=== PATIENT | female | born 1935 | race Caucasian/White ===

== ENCOUNTER 2019-06-18 13:35 | Emergency (ER) | payer OTHER ==
[~2019-06-18] VITALS: Ht 167.6 cm; Wt 83.5 kg
[~2019-06-18 13:35] MED LIST: ACETAMINOPHEN325 M1 PO; ACIDOPHILUS1 EAC3 PO; ADULT LOW DOSE81 MG PO; ALEVE220 M1 PO; AMARYL1 MG; AMARYL1 MG PO; AMARYL2 MG PO; ANASTROZOLE1 MG; BAYER CHEWABLE81 MG PO; CARDIZEM CD120 MG PO; COLACE100 MG PO; COMPAZINE10 M1 PO; COUMADIN 2 MG TA2 M1 PO; COUMADIN 3 MG TA3 M1 PO; COZAAR 50 MG TA50 M1 PO; ELIQUIS5 MG; EUCERIN CREME57 GM; FERRO-TIME325 MG PO; FERROUS SULFAT134 M1 PO; GABAPENTIN100 MG PO; GELUSIL TABLET1 EACH PO; GLUCOPHAGE500 MG PO; HYDROCODONE-AP1 EAC6 PO; KEFLEX250 M1 PO; KEFLEX500 MG; LEVAQUIN 750 M750 MG; LEVEMIR FL100 UNIT/1 SUBQ; LEVEMIR SUBQ; LEVOTHROID75 MCG PO; LEVOTHYROXIN0.025 MG PO; LEVOTHYROXINE75 MCG PO; LIDODERM 5%1 PATC1 TRANSDERM; LISINOPRIL10 MG PO; MECLIZINE HCL12.5 MG PO; MIRALAX17 GM PO; NEURONTIN 300300 M1 PO; NORCO 10-325 T1 EACH PO; NORCO 5-325 TA1 EACH PO; NORFLEX100 MG PO; NOVOLOG100 UNIT/1; NOVOLOG100 UNIT/1 SUBQ; PERCOCET 10-321 EAC1; PLAVIX 75 MG TA75 M1 PO; PLAVIX 75 MG TA75 MG PO; PROPAFENONE 15150 MG PO; PROTONIX40 M2 PO; SAVAYSA60 MG PO; SIMVASTATIN40 MG PO; SYNTHROID75 MCG PO; TYLENOL W/CODEI1 TA2 PO; VITAMIN D1000 UNI1 PO; VITAMIN D2000 UNIT PO; ZOFRAN ODT4 MG PO
[2019-06-18] MEDS ORDERED: DILTIAZEM HCL120 M1 PO (13:38)
[2019-06-18] MEDS ORDERED: COZAAR 25 MG TA25 M1 PO (13:38)
[2019-06-18] MEDS ORDERED: LEVOTHYROXINE88 MCG PO (13:38)
[2019-06-18] MEDS ORDERED: PROPAFENONE 22225 M1 PO (13:39)
[2019-06-18] MEDS ORDERED: NORCO 5-325 TA1 EAC1 PO (15:07)
[2019-06-18 15:35] VITALS: BP 174/82
== END 2019-06-18 16:15 | disposition home or self-care (01) ==
LOC: ER 13:35
DX: S80.01XA Contusion of right knee, initial encounter (principal); M25.512 Pain in left shoulder; M25.511 Pain in right shoulder; E11.9 Type 2 diabetes mellitus without complications; E03.9 Hypothyroidism, unspecified; E78.00 Pure hypercholesterolemia, unspecified; K21.9 Gastro-esophageal reflux disease without esophagitis; Z90.49 Acquired absence of other specified parts of digestive tract; Z90.710 Acquired absence of both cervix and uterus; Z85.42 Personal history of malignant neoplasm of other parts of uterus; Z86.73 Personal history of transient ischemic attack (TIA), and cerebral infarction without residual deficits; Z95.5 Presence of coronary angioplasty implant and graft; Z86.2 Personal history of diseases of the blood and blood-forming organs and certain disorders involving the immune mechanism; Z79.4 Long term (current) use of insulin; W18.39XA Other fall on same level, initial encounter; Y93.89 Activity, other specified; Y92.098 Other place in other non-institutional residence as the place of occurrence of the external cause; Y99.8 Other external cause status

== ENCOUNTER 2021-09-02 17:06 | Emergency (ER) | payer OTHER ==
[~2021-09-02] VITALS: Ht 157.5 cm; Wt 68.0 kg
--- NOTE | ~2021-09-02 | EMS ---
[address] [address] EMS Patient Care Report Name: VINI VAZQUEZ Room #: REG JESUS Polo#: [id number] Admission: 09/02/21 Attend Phys: Discharge: Date of : 39 Report #: [id number] THIS REPORT FOR: //name// Report Transmitted: 09/02/2021 17:51 EMS Care Summary [facility] MED-ACT Incident [id number] @ 09/02/2021 16:22 Incident Location [address] [place] [address] Patient VINI VAZQUEZ Female, 85 Years 1935 Patient Address [address] [place] [address] Patient History Hypertension (HTN),Hyperlipidemia,Atrial Fibrillation,Hypothyroidism, Patient Allergies No known allergies, Patient Medications Levothyroxine, Torsemide, Eliquis, Diltiazem, Rosuvastatin, Chief Complaint Altered mental status Disposition Transported No Lights/[place] Dispatch Reason Falls Transported To [facility] Narrative C - Altered mental status, fall, injury, and hearing impairment. H - [id number] was dispatched to a local residences on a C2 fall. [id number] arrived on scene to find Ms. Vazquez an 85 y/o female found sitting in a chair located [address] [address] EMS Patient Care Report Name: VINI VAZQUEZ Room #: REG [facility]#: [id number] Admission: 09/02/21 Attend Phys: Discharge: Date of : 39 Report #: [id number] located in a small living room. Ms. Vazquez was found CAOx4 and able to initially talk in full and complete sentences, but then during our conversation the patient was either unable to or confused to the questions of our crew. No facial droop, slur, or unilateral weakness was noted upon our initial assessment and the patient was able to move all extremities without difficulties during our interaction. 911 had been initiated to the scene by a third alliance party caller who reported that she was on the phone with the patient and was not sounding right during their conversation. Ms. Vazquez's initial and only consistent subjective complaint was that she was having trouble hearing. During further questioning and interaction Ms. Vazquez reported that she maybe having some dysphasia and ''word salad'', but there was a continued seemingly confusion to some questions that our crew was asking the patient. Ms. Vazquez also was able to report upon our arrival to the ED that she was experiencing a headache, but then she added that she was now feeling better and ready to return home. Located on scene was the patient's and son, but both were extremely poor historians. The patient's reported that he was 88 years old and couldn't remember and of the patient's PMH and simply reported that the patient was seemingly ''a little off.'' The patient son was also located on scene and he provided a slightly better HPI involving the patient. He reported that his mom was walking to the kitchen this evening and he had is back turned and heard her fall. He turned around and found the patient lying in prone position. He denied any loss of consciousness during the event and reported that he helped his mother up from the ground. Ms. Vazquez initially reported some knee pain due to the fall, but then never reported anything further from the fall. The son was asked if his mother was acting to baseline for cognition, mobility, and speech. He reported that her speech as been off since yesterday at approx. 1200. He reported that he told his father that something didn't seem right with his mother's speech but no further evaluation or thought was noted by the son. The son then reported that he did not know a whole lot else about his mother, and he had no further information to give our crew. Our crew's best guess based on the information that we could obtain on scene and through questioning that her last known normal was prior to 1200 the previous day. R - Initial assessment, physical examination, V/s ([facility], [place], and 12 lead all done prior to our arrival.), pt. was able to walk from the small cramp room to the front landing where the stretcher was located, IV access, stroke assessment, continued reassessment. T - Ms. Vazquez continued to have an altered mental status during transport. Our crew was able to have full and complete conversations with the patient, and then the next conversation was confused or potentially aphasic or dysphasic speech. No change was noted in the patient's V/s during transport. The patient was moved over into bed in ED room 11 via sheet drag without incident with report given to ED RN and MD. [facility] [address] [place] [address] EMS Patient Care Report Name: VINI VAZQUEZ Room #: [facility] [employer]#: [id number] Admission: 09/02/21 Attend Phys: Discharge: Date of : 39 Report #: [id number] Initial Vitals @17:03P: 74,BP: 176/95,SpO2: 97, @PTAP: 67,R: 15,BP: 163/76,Pain: 0/10,GCS: 15,Glucose: 118,SpO2: 98,Revised Trauma: 12,IA Suspected: false @16:47P: 76,R: 18,BP: 190/96,GCS: 15,Temp: 98.1F,SpO2: 98,Revised Trauma: 12, Impression Altered Mental Status Procedures @17:01 Surgical Mask on Patient Response: Unchanged @16:51 IV Therapy - Saline Lock 10cc (20 ga) Site: Forearm-Right Response: UnchangedSucceeded @[id number] ECG Response: UnchangedSucceeded Timeline SWITCHBOARD CLERK,12-Lead ECG,Response: UnchangedSucceeded, SWITCHBOARD CLERK,BP: 163/76 M,PULSE: 67,RR: 15 R,SPO2: 98 Ox,ETCO2: ,B,PAIN: 0,GCS: 15, 16:19,Call Received 16:19,Psap Call 16:22,Dispatched 16:23,En Route 16:38,On Scene 16:40,At Patient 16:47,BP: 190/96 M,PULSE: 76,RR: 18 R,SPO2: 98 Ox,ETCO2: ,BG: ,PAIN: ,GCS: 15, 16:51,IV Therapy - Saline Lock 10cc 20 ga Site: Forearm-Right,Response: UnchangedSucceeded, 16:54,Depart Scene 17:01,Surgical Mask on Patient,Response: Unchanged 17:03,At Destination 17:03,BP: 176/95 M,PULSE: 74,RR: R,SPO2: 97 Ox,ETCO2: ,BG: ,PAIN: ,GCS: , 17:35,Call Closed Disclaimer v1.1 Copyright 2020 [employer] This EMS Care Summary contains data elements from the applicable legal record (which may be displayed differently). It is designed to provide pertinent information for the following purposes: continuity of care, clinical quality, and state data reporting. The complete legal record is available to ED staff and administrators of the receiving hospital in [place]'s Patient Tracker. All data is provided "as is."
[~2021-09-02 17:06] MED LIST changes: +COZAAR 25 MG TA25 M1 PO; +DILTIAZEM HCL120 M1 PO; +LEVOTHYROXINE88 MCG PO; +NORCO 5-325 TA1 EAC1 PO; +PROPAFENONE 22225 M1 PO
[2021-09-02 18:02] LABS: BASOPHILS 0.6 % (0.0-2.0); EOSINOPHILS 3.2 % (0.0-3.0); HEMATOCRIT 35.1 % (37.0-47.0); HEMOGLOBIN 11.3 gm/dL (12.0-15.0); LYMPHOCYTES 17.2 % (24.0-44.0); MCH 26.9 pg (26.0-34.0); MCHC 32.2 g/dL (28.0-37.0); MCV 83.4 fL (80.0-100.0); MONOCYTES 8.6 % (1.0-8.0); PLATELET COUNT 181 thou/uL (150-400); POLYS 70.4 % (36.0-66.0); RBC 4.21 mil/uL (4.20-5.00); RDW 15.3 % (10.5-14.5); WBC 5.8 thou/uL (4.0-11.0)
[2021-09-02 18:19] LABS: CALCIUM 9.8 mg/dL (8.5-10.1); CREATININE 1.9 mg/dL (0.6-1.0); POTASSIUM 4.2 mmol/L (3.5-5.1)
[2021-09-02 18:20] LABS: APTT 26.7 Seconds (24.5-32.8); INR 1.01
[2021-09-02 18:28] LABS: ALBUMIN 3.5 g/dL (3.4-5.0); TOTAL BILIRUBIN 0.3 mg/dL (0.2-1.0)
[2021-09-02 19:36] LABS: URINE BILIRUBIN NEGATIVE (Negative); URINE BLOOD TRACE (Negative); URINE CLARITY CLEAR; URINE COLOR YELLOW; URINE GLUCOSE-RANDOM* NEGATIVE (Negative); URINE KETONES TRACE (Negative); URINE LEUKOCYTES-REFLEX TRACE (Negative); URINE NITRITE-REFLEX NEGATIVE (Negative); URINE PROTEIN (DIPSTICK) 2+ (Negative); URINE SPECIFIC GRAVITY 1.015 (1.005-1.035); URINE UROBILINOGEN 0.2 E.U./dl (0.2-1.0)
[2021-09-02 19:44] LABS: AMP/METHAMP Negative (Negative); BARBITURATES Negative (Negative); BENZODIAZEPINES Negative (Negative); COCAINE Negative (Negative); METHADONE Negative (Negative); OPIATES Negative (Negative); PCP Negative (Negative)
[2021-09-02 19:53] LABS: CASTS None Seen /LPF (None Seen); SQUAMOUS 0-3 Few /LPF (0-3)
[2021-09-02 19:54] LABS: BACTERIA-REFLEX 1-9 Few /HPF (None Seen); CRYSTALS None Seen /LPF (None Seen); URINE RBC 1-2 Rare /HPF (NONE SEEN); URINE WBC-REFLEX 6-15 Few /HPF (0-5)
[2021-09-02 20:19] VITALS: BP 172/60
--- NOTE | 2021-09-03 07:31 | EKG ---
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 munoz : 1935 Requested By: Randy Lanier Order Number: [id number] MD: Bladimir Burrell Measurements Intervals [place] Rate: 96 P: -26 ME: 170 QRS: -57 QRSD: 111 T: 90 QT: 378 QTc: 478 Interpretive Statements Sinus rhythm Multiform ventricular premature complexes Incomplete RBBB Abnormal R-wave progression, early transition LVH with secondary repolarization abnormality Compared to ECG 10/22/2015 02:00:09 Ventricular premature complex(es) now present Left anterior fascicular block now present Incomplete right bundle-branch block now present Right bundle-branch block now present Left ventricular hypertrophy now present Electronically Signed On 09-03-2021 7:30:57 HEART SURGEON by Bladimir Burrell [email or web address] <ELECTRONICALLY SIGNED> By: Bladimir Burrell MD, FACC 09/03/21 0730 42 42 Bladimir Burrell MD, [facility] /EPI
== END 2021-09-02 20:22 | disposition home or self-care (01) ==
LOC: ER 17:06
PROVIDERS: Emergency Medicine
DX: I62.00 Nontraumatic subdural hemorrhage, unspecified (principal); Z20.822 Contact with and (suspected) exposure to COVID-19; R47.01 Aphasia; R53.1 Weakness; E11.9 Type 2 diabetes mellitus without complications; E03.9 Hypothyroidism, unspecified; E78.00 Pure hypercholesterolemia, unspecified; K21.9 Gastro-esophageal reflux disease without esophagitis; Z86.2 Personal history of diseases of the blood and blood-forming organs and certain disorders involving the immune mechanism; Z86.73 Personal history of transient ischemic attack (TIA), and cerebral infarction without residual deficits; Z90.89 Acquired absence of other organs; Z90.710 Acquired absence of both cervix and uterus